=== PATIENT | female | born 1955 | race Caucasian/White ===

== ENCOUNTER 2018-12-10 06:21 | Day surgery (SDC) | payer MEDICARE, OTHER ==
[2018-12-10] MEDS ORDERED: Lactated Ringers 1,000 ML IV SCH (07:15)
[2018-12-10] MEDS ORDERED: fentaNYL 100 MCG/2 ML SDV ONE (07:24)
[2018-12-10] MEDS ORDERED: Propofol 200 MG/20 ML SDV ONE (07:25)
[2018-12-10] MEDS ORDERED: Midazolam 1 MG/ML 2 ML SDV ONE (07:25)
--- NOTE | 2018-12-10 14:02 | OR ---
DATE OF PROCEDURE: 12/10/2018 PREOPERATIVE DIAGNOSIS: Colon cancer screening. POSTOPERATIVE DIAGNOSIS: Unremarkable colonoscopy. PROCEDURE: Colonoscopy to the cecum. SURGEON: Amarjit Ritchie MD ANESTHESIA: IV anesthesia with monitored anesthesia care. INDICATION: This 63-year-old white female is referred for a colonoscopy for colon cancer screening. She says her last colonoscopic exam was done more than 10 years ago. I counseled her for the procedure, including risks and alternatives, and she gave her informed consent to proceed. DESCRIPTION OF PROCEDURE: The patient was placed in the left lateral decubitus position. IV anesthesia was administered by the Anesthesia Service. Time-out was held. A rectal exam was performed, which was unremarkable. The flexible video Olympus colonoscope was introduced through her anus, up her rectum, out her colon all the way to the cecum. Once the cecum was reached, the scope was slowly withdrawn examining the mucosa throughout. No mucosal abnormalities were noted. The scope was retroflexed in the rectum with the distal rectum showing some hemorrhoidal tissue. The scope was straightened and removed. She tolerated the procedure well. Amarjit Ritchie MD /[id number]
== END 2018-12-10 09:40 | disposition home or self-care (01) ==
LOC: JP.SDS 06:21
PROVIDERS: ATTEND Surgery
DX: Z12.11 Encounter for screening for malignant neoplasm of colon (principal); K64.9 Unspecified hemorrhoids; K21.9 Gastro-esophageal reflux disease without esophagitis; E04.1 Nontoxic single thyroid nodule
CPT/HCPCS: G0121; J2250; J2704; J3010; J7120

== ENCOUNTER 2022-04-04 06:36 | Day surgery (SDC) | payer MEDICARE, OTHER ==
[2022-04-04] MEDS ORDERED: Bupivacaine 0.5% 30 ML SDV ONE (06:46)
[2022-04-04] MEDS ORDERED: Lactated Ringers 1,000 ML IV SCH (07:00)
[2022-04-04] MEDS ORDERED: Nozin Nasal Sanitizer NASBOTH ONE (07:00)
[2022-04-04] MEDS ORDERED: ceFAZolin 1 GM in Sodium Chloride 0.9% 50 ML IV ONE (07:30)
[2022-04-04] MEDS ORDERED: ceFAZolin 1 GM in Premix Bag 1 BAG IV ONE (07:30)
[2022-04-04] MEDS ORDERED: Propofol 200 MG/20 ML SDV ONE (07:45)
[2022-04-04] MEDS ORDERED: Midazolam 1 MG/ML 2 ML SDV ONE (07:46)
[2022-04-04] MEDS ORDERED: Lidocaine 0.5% 50 ML SDV ONE (07:47)
[2022-04-04] MEDS ORDERED: fentaNYL 100 MCG/2 ML SDV ONE (08:06)
[2022-04-04 08:30] LABS: ESTIMATED GFR 80 mL/min (>60)
== END 2022-04-04 10:32 | disposition home or self-care (01) ==
LOC: JP.SDS 06:36
PROVIDERS: ATTEND Specialist
DX: G56.01 Carpal tunnel syndrome, right upper limb (principal); E04.1 Nontoxic single thyroid nodule; Z79.899 Other long term (current) drug therapy
CPT/HCPCS: 36415; 64721; 80053; 85027; A9270; J0690; J2250; J2704; J3010; J3490; J7120

== ENCOUNTER 2024-08-16 07:47 | Day surgery (SDC) | payer MEDICARE, OTHER ==
[~2024-08-16 07:47] MED LIST: Propofol 200 MG/20 ML SDV ONE; fentaNYL 100 MCG/2 ML SDV ONE
[2024-08-16] MEDS: Lactated Ringers 1,000 ML IV SCH (08:55)
[2024-08-16] MEDS ORDERED: Lactated Ringers 1,000 ML IV SCH (10:30)
== END 2024-08-16 10:31 | disposition home or self-care (01) ==
LOC: JP.SDS 07:47
PROVIDERS: ATTEND Surgery
DX: K29.50 Unspecified chronic gastritis without bleeding (principal); K22.10 Ulcer of esophagus without bleeding
CPT/HCPCS: 00731; 43239; 88305; 88312; 88341; 88342; J2704; J3010; J7120

== ENCOUNTER → 2024-09-26 | Day surgery (SDC) | payer MEDICARE, OTHER ==
[~2024-09-26] MED LIST changes: -fentaNYL 100 MCG/2 ML SDV ONE; +fentaNYL 50 MCG/ML SDV ONE
[2024-09-26] MEDS: Lactated Ringers 1,000 ML IV SCH (08:45)
== END ==
LOC: JP.SDS 07:57
PROVIDERS: ATTEND Surgery
DX: K29.50 Unspecified chronic gastritis without bleeding (principal)
CPT/HCPCS: 00731-QZ; 88305; J2704; J3010; J7120